=== PATIENT | male | born 1990 | race Caucasian/White ===

== ENCOUNTER 2022-03-27 02:02 | Emergency (ER) | payer SELFPAY ==
[~2022-03-27] VITALS: Ht 165.1 cm; Wt 88.4 kg
[2022-03-27] MEDS ORDERED: HYDROCODONE/ACETAMINOPHEN 5/325MG TABLET PO ONE (03:00)
[2022-03-27 03:10] VITALS: BP 155/101
[2022-03-27] MEDS ORDERED: PENI500T MT (04:00)
[2022-03-27] MEDS ORDERED: IBUP-2029 MT (04:00)
== END 2022-03-27 04:28 | disposition home or self-care (01) ==
LOC: ER 02:02
DX: R68.84 Jaw pain (principal); K04.01 Reversible pulpitis
CPT/HCPCS: 99283